=== PATIENT | male | born 1955 | race Caucasian/White ===

== ENCOUNTER 2019-04-26 13:03 | Observation (INO) | payer BC, SELFPAY ==
[2019-04-26] VITALS (14 sets, daily range): BP systolic 136–169; BP diastolic 74–111; PULSE 62–99; RESP 15–21; TEMP 36.3–36.8; O2SAT 97–100; BMI 24.0
--- NOTE | 2019-04-26 13:28 | ED_ITS ---
Documented by User: Latonya Wu 04/26/19 14:27 HPI - Wound/Laceration General: Chief Complaint: Wound/Laceration Stated Complaint: FOREARM LAC Time Seen by Provider: 04/26/19 13:25 Source: patient Mode of arrival: ambulatory History of Present Illness: HPI narrative: 63-year-old male patient presents emergency department with laceration to the third distal portion of his left forearm. Patient states he did this with an X-Acto knife. Patient states this happened about an hour prior to arrival. Patient complains of decreased sensation to his fingers but has good pulses and good cap refill. Patient was actively bleeding at triage triage placed a tourniquet in place to control bleeding. Pt is unsure of lasat tetanus shot. Onset (ago): hour(s) (1) Extremity Location: Left: arm (3 cm linear laceration) Place: home Patient tetanus UTD: No (Unknown) Context: accidental Associated symptoms: Reports numbness; Denies chills, fever(s) or syncope Treatments prior to arrival: tourniquet Review of Systems Const: Denies: fever, chills, body aches or fatigue Card: Denies: chest pain, palpitations, irregular heart rhythm, lightheadedness or syncope Resp: Denies: shortness of breath, productive cough, wheezing or stridor Musc: Reports: extremity pain and other (3 cm linear laceration to left 1/3 distal arm) Neuro: Denies: headache, changes in sensation, dizziness or vertigo Psych: Denies: anxiety, depression, mood swings, panic attacks, suicidal ideation or homicidal ideation [facility] ED PFSH: Statuses (acute, chronic, etc) shown below reflect problem list status as previously entered and may not be historically accurate Social History Smoking and tobacco status: former smoker Physical Exam Const: COMMON NORMALS: no apparent distress and oriented x3 GENERAL APPEARANCE: cooperative ORIENTATION/CONSCIOUSNESS: Yes awake, Yes oriented to person, Yes oriented to place and Yes oriented to time HENMT: COMMON NORMALS: normocephalic and head/scalp atraumatic HEAD & SCALP: normocephalic and atraumatic Eye: COMMON NORMALS: PERRL PUPIL: Yes PERRL Neck/C-Spine: COMMON NORMALS: no JVD Chest: COMMONS NORMALS: inspection of chest normal Resp: COMMON NORMALS: normal respiratory effort, no retractions, no use of accessory muscles and clear to auscultation bilaterally EFFORT & INSPECTION: Yes able to speak in complete sentences AUSCULTATION: clear to auscultation bilaterally Cardio: COMMON NORMALS: no JVD, regular rate and regular rhythm RATE: regular rate RHYTHM: regular rhythm PERIPHERAL PULSES: radial pulses present Extremity: COMMON NORMALS: normal to inspection NARRATIVE EXTREMITY EXAM: Pt has a 3 cm linear laceration to 1/3 distal portion of left arm.. This appears to be arterial. Neuro: COMMON NORMALS: oriented x3, CN's II-XII intact bilaterally, moves all extremities, no focal motor deficits and no sensory deficits noted SENSORIUM/ORIENTATION: Yes oriented to person, Yes oriented to place and Yes oriented to time SENSORY EXAM: Yes extremities (decreased sensation to left hand sensation did improve after tourniquet was removed) Skin: TRAUMA: lacerations and/or abrasions noted (3 cm linear laceration to 1/3 distal portion of left arm) Course ED course: Tourniquet was removed from arm 5 mL's of 1% lidocaine with epi was injected for local anesthesia it does appear to be an arterial bleed initially I thought it was a capillary spasm however after having the tourniquet released for 30 seconds it does appear to be arterial patient is complaining of decrease sensation to his fingers I will plan to take patient to surgery for repair. I attempted to contact [facility] for transfer however they are on diversion I will call [facility] for transfer at this time Dr. Donaldson to take patient to OR at this time Labs drawn Pulses intact cap refill 2 seconds. Bleeding controlled with intermittent tourniquet use tourniquet used Vital Signs: Vital signs: Vital Signs Temperature 98.3 F 04/26/19 13:10 Pulse Rate 99 04/26/19 13:10 Respiratory Rate 15 04/26/19 13:10 Blood Pressure 169/111 04/26/19 13:10 Pulse Oximetry 97 04/26/19 13:10 MDM - Wound/Laceration 2 Lab Data: Labs: Lab Results 04/26/19 Range/Units 14:10 WBC 7.8 (4.0-10.0) 10^3/ uL RBC 4.24 (4.1-5.3) 10^6/u L Hgb 11.9 (11.7-16.6) g/dL Hct 36.6 L (42.0-52.0) % MCV 86.3 (80-94) fL MCH 28.1 (28.0-34.0) pg MCHC 32.5 (30.0-36.0) g/dL RDW 12.8 (12.1-15.1) % Plt Count 313 (130-400) 10^3/c mm MPV 9.3 (7.4-10.4) fL Neut % (Auto) 82.3 % Lymph % (Auto) 11.1 % Sampson % (Auto) 4.3 % Eos % (Auto) 1.5 % Baso % (Auto) 0.5 % Neut # (Auto) 6.4 (1.8-7.7) 10^3/u L Lymph # (Auto) 0.9 (0.8-4.8) 10^3/u L Sampson # (Auto) 0.3 (0.2-0.9) 10^3/u L Eos # (Auto) 0.1 (0.0-0.8) 10^3/u L Baso # (Auto) 0.0 (0.0-0.1) 10^3/u L Nucleated RBC % (a uto) 0 % Nucleated RBCs # 0.0 /100WBC Discharge Plan Discharge Patient Disposition: Admitted As Inpatient Clinical Impression: Laceration Condition: Stable Coding Level of Care Code ED 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 Sociology 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 Course Vital Signs: Vital signs: Vital Signs Temperature 98.3 F 04/26/19 13:10 Pulse Rate 99 04/26/19 13:10 Respiratory Rate 15 04/26/19 13:10 Blood Pressure 169/111 04/26/19 13:10 Pulse Oximetry 97 04/26/19 13:10 MDM - Wound/Laceration MDM Narrative: Medical decision making narrative: I saw patient with midlevel. Patient had concerning injury with possible arterial injury. I spoke to Dr. Donaldson and he is going to take the patient to the OR to evaluate further. Patient has been stable while here. Patient has no signs of nerve damage to his hand. Lab Data: Labs: Lab Results 04/26/19 Range/Units 14:10 WBC 7.8 (4.0-10.0) 10^3/ uL RBC 4.24 (4.1-5.3) 10^6/u L Hgb 11.9 (11.7-16.6) g/dL Hct 36.6 L (42.0-52.0) % MCV 86.3 (80-94) fL MCH 28.1 (28.0-34.0) pg MCHC 32.5 (30.0-36.0) g/dL RDW 12.8 (12.1-15.1) % Plt Count 313 (130-400) 10^3/c mm MPV 9.3 (7.4-10.4) fL Neut % (Auto) 82.3 % Lymph % (Auto) 11.1 % Sampson % (Auto) 4.3 % Eos % (Auto) 1.5 % Baso % (Auto) 0.5 % Neut # (Auto) 6.4 (1.8-7.7) 10^3/u L Lymph # (Auto) 0.9 (0.8-4.8) 10^3/u L Sampson # (Auto) 0.3 (0.2-0.9) 10^3/u L Eos # (Auto) 0.1 (0.0-0.8) 10^3/u L Baso # (Auto) 0.0 (0.0-0.1) 10^3/u L Nucleated RBC % (a uto) 0 % Nucleated RBCs # 0.0 /100WBC Discharge Plan Discharge Patient Disposition: Admitted As Inpatient Clinical Impression: Laceration Condition: Stable Coding Level of Care Code 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
[2019-04-26 14:24] LABS: Basophils % 0.5 %; Eosinophils # 0.1 10^3/uL (0.0-0.8); Eosinophils % 1.5 %; Hematocrit 36.6 % (42.0-52.0); Hemoglobin 11.9 g/dL (11.7-16.6); Lymphocytes # 0.9 10^3/uL (0.8-4.8); Lymphocytes % 11.1 %; Mean Corpuscular HGB Conc 32.5 g/dL (30.0-36.0); Mean Corpuscular Hemoglobin 28.1 pg (28.0-34.0); Mean Corpuscular Volume 86.3 fL (80-94); Mean Platelet Volume 9.3 fL (7.4-10.4); Monocytes # 0.3 10^3/uL (0.2-0.9); Monocytes % 4.3 %; Neutrophils # 6.4 10^3/uL (1.8-7.7); Neutrophils % 82.3 %; Nucleated Red Blood Cells % 0 %; Platelet Count 313 10^3/cmm (130-400); Red Blood Count 4.24 10^6/uL (4.1-5.3); Red Cell Distribution Width 12.8 % (12.1-15.1); White Blood Count 7.8 10^3/uL (4.0-10.0)
--- NOTE | 2019-04-26 14:33 | ANES.PREANE2 ---
Pre-Anesthetic Assessment Pre-Anesthetic Assessment: Height/Weight: Height 1.78 m Weight 76.204 kg Temp Pulse Resp BP Pulse Ox 98.3 F 99 15 169/111 97 04/26/19 13:10 04/26/19 13:10 04/26/19 13:10 04/26/19 13:10 04/26/19 13:10 Preop Diagnosis: left radial artery laceration Proposed Procedure: Operation Date: 04/26/19 15:00 Proposed Procedures p Radial Artery Repair(Left) - Suhas Donaldson MD [facility] Anesthesia PFSH: Social History Smoking and tobacco status: former smoker Data Anesthesia CBC & Chem 7: 04/26/19 14:10 Other Labs: Laboratory Results - last 48 hr 04/26/19 14:10 WBC 7.8 RBC 4.24 Hgb 11.9 Hct 36.6 L MCV 86.3 MCH 28.1 MCHC 32.5 RDW 12.8 Plt Count 313 MPV 9.3 Neut % (Auto) 82.3 Lymph % (Auto) 11.1 [place] % (Auto) 4.3 Eos % (Auto) 1.5 Baso % (Auto) 0.5 Neut # (Auto) 6.4 Lymph # (Auto) 0.9 [place] # (Auto) 0.3 Eos # (Auto) 0.1 Baso # (Auto) 0.0 Nucleated RBC % (auto) 0 Nucleated RBCs # 0.0 Cardiac Studies: No Data to Display
--- NOTE | 2019-04-26 14:34 | ANES.PREANE2 ---
Pre-Anesthetic Assessment Pre-Anesthetic Assessment: Height/Weight: Height 1.78 m Weight 76.204 kg Temp Pulse Resp BP Pulse Ox 98.3 F 99 15 169/111 97 04/26/19 13:10 04/26/19 13:10 04/26/19 13:10 04/26/19 13:10 04/26/19 13:10 Preop Diagnosis: left arm laceration Proposed Procedure: Operation Date: 04/26/19 15:00 Proposed Procedures p Radial Artery Repair(Left) - Suhas Donaldson MD Last Intake: 13:00 Social: Social History: No alcohol and No tobacco Exam: Pre-Anes Outpt Exam: alert, oriented x 3, clear to auscultation bilaterally and regular rate & rhythm Airway: Submandibular: WNL Cervical ROM: WNL MP: 2 Pulmonary: Pulmonary: None reported CV/HEM: CV/HEM: None reported : : None reported Hepatic: Hepatic: None reported GI: GI: None reported Metabolic: Metabolic: None reported Musc/skel: Musc/skel: Lower Back Pain Neuropsych: Neuropsych: Anxiety and Depression Anesthetic Plan: ASA status: E Anesthesia: Anesthesia Evaluation and General Risk of > 500 ml blood loss (7ml/kg in children): No PFSH Anesthesia PFSH: Social History Smoking and tobacco status: former smoker Data Anesthesia CBC & Chem 7: 04/26/19 14:10 Other Labs: Laboratory Results - last 48 hr 04/26/19 14:10 WBC 7.8 RBC 4.24 Hgb 11.9 Hct 36.6 L MCV 86.3 MCH 28.1 MCHC 32.5 RDW 12.8 Plt Count 313 MPV 9.3 Neut % (Auto) 82.3 Lymph % (Auto) 11.1 [place] % (Auto) 4.3 Eos % (Auto) 1.5 Baso % (Auto) 0.5 Neut # (Auto) 6.4 Lymph # (Auto) 0.9 [place] # (Auto) 0.3 Eos # (Auto) 0.1 Baso # (Auto) 0.0 Nucleated RBC % (auto) 0 Nucleated RBCs # 0.0 Cardiac Studies: No Data to Display
[2019-04-26 14:43] LABS: Alanine Aminotransferase 34 U/L (0-41); Albumin Level 4.5 g/dL (3.5-5.2); Alkaline Phosphatase 48 IU/L (40-130); Aspartate Amino Transferase 44 U/L (0-40); Blood Urea Nitrogen 24 mg/dL (8-23); Calcium 9.5 mg/dL (8.5-10.5); Carbon Dioxide 24 mmol/L (22-29); Chloride 103 mmol/L (98-107); Globulin 2.5 g/dL (1.3-4.6); Glomerular Filtration Rate 85.2 mL/min (90-130); Glucose 119 mg/dL (74-106); Sodium 137 mmol/L (136-145); Total Bilirubin 0.7 mg/dL (0.15-1.2)
--- NOTE | 2019-04-26 14:44 | PC.NURSE ---
Patient Assessment Patient reports he was building something on his daughter's deck and fell with an Xacto knife. Patient holding pressure on arrival. Patient reports that this accident happened just prior to arrival.
[2019-04-26] MEDS: ceFAZolin 1,000 MG in sodium chloride 0.9% (plus) 50 ML 100 MG IV (15:00)
[2019-04-26] MEDS: vancomycin 1,000 MG SDV 1000 MG IRRIGATION (15:05)
[2019-04-26] MEDS: vancomycin 1,000 MG in sodium chloride 0.9% 250 ML 250 MG IV (15:05)
--- NOTE | 2019-04-26 16:03 | SUR.PHASEI ---
1601 PATIENT TO PACU AT THIS TIME FROM OR. RR EVEN AND UNLABORED. PWD. DRESSING, CDI TO LEFT FOREARM. PATIENT TALKATIVE, DROWSY.
--- NOTE | 2019-04-26 16:35 | SUR.PHASEI ---
1627 PATIENT TO MED SURG VIA [facility] AT THIS TIME. NO DISTRESS. PWD.A/OX3. TALKATIVE. DRESSING TO LEFT FOREARM, CDI. PULSE PRESENT AND STRONG.
--- NOTE | 2019-04-26 16:47 | PC.NURSE ---
Patient's to take wallet home.
--- NOTE | 2019-04-26 16:58 | P.OP_ITS ---
Operative Report Date of procedure: April 26, 2019 Pre-op Diagnosis: left arm laceration Post-op diagnosis: other Post-op Diagnosis: Left forearm laceration with transection of left radial artery Post-op Findings: Slightly tangential complete laceration of left radial artery in the distal forearm Procedure Done: Left forearm exploration with debridement and primary repair end to end of the left radial artery Pathology: none sent Surgeon: Suhas Donaldson Anesthesia: General Estimated blood loss (mL): 50 Tourniquet time (min): 0 Complications: None Condition: stable Disposition: floor Brief History: 63-year-old gentleman presents to the emergency room following an accidental laceration to the radial volar aspect of his distal left forearm utilizing an X-Acto knife while performing hobby activity on a piece of wood. We were contacted by the ER department while in the middle of another case that direct pressure was being required along with a tourniquet to control bleeding from this forearm wound. As there were no other providers available other than transfer for this lesion, we had the patient brought to the holding area as we finished our current case in preparation for forearm wound exploration. Verbal consent was obtained from Mr. Mcnamara as we proceeded in expeditious fashion in preparation for the OR. was present at bedside during explanation of the planned procedure and obtaining verbal consent. Procedure: Preanesthetic neurologic exam revealed good hand function without obvious evidence for sensory deficits. Mr. Mcnamara was then taken to the operating room theater, carefully positioned, and underwent general endotracheal anesthesia. Direct pressure was being held on his forearm throughout this time. After confirmation of adequate IVs, his entire left arm and hand from fingertips to shoulder was sterilely prepped and draped with Betadine given the open wound. There was no active bleeding though there was some protrusion of muscle from this approximately 4 cm laceration. After completion of prepping, timeout was performed. 2 g of Ancef had been administered and 1 g of vancomycin was being administered as we proceeded with the procedure. Wound exploration was then performed digitally through the muscle which did appear to extend down to the interosseous fascia. There was some old clot expressed and then rapid active bleeding occurred. Direct pressure was held. The incision was extended proximally about another 2 cm to allow for improved exposure which time we were able to locate the proximal and distal portions of a slightly tangentially transected radial artery. Debridement was performed and the patient received 5000 units of heparin. Active bleeding could be noted from both the proximal and distal portions of this transected artery. Following debridement, it was felt that there were was reasonable opportunity to attempt primary repair without excessive tension. This was performed utilizing interrupted 7-0 Prolene suture. Was completed, hemostasis was confirmed. Cautery was utilized as required. Heparin was partially reversed with protamine. Doppler interrogation of the distal radial artery immediately distal to the repair as well as at the wrist revealed a biphasic signal. Following this, given the somewhat protrusion of the musculature, as well as the contaminated nature of this wound, we elected to perform primary closure utilizing skin samuel only. Sterile dressing was applied. He was awakened from anesthesia and extubated without difficulty. He is taken to the postoperative care unit. I have counseled with his . We wi ll plan for direct admission as observation status overnight with continued IV antibiotics currently.
--- NOTE | 2019-04-26 17:18 | PM.HP ---
Providers/Chief Complaint Admitting Physician: Suhas Donaldson MD Primary Care Provider: Suhas Donaldson MD Chief Complaint: FOREARM LAC History of Present Illness Gordy Mcnamara is a 63 year old male I was contacted by phone from the ER department while in surgery earlier today. He had presented there with a profusely bleeding laceration to the volar aspect of his left forearm following an accidental injury from an X-Acto knife around 11:00 while he was working on some wood. Attempts at direct pressure had failed once released with with continued substantial bleeding which was felt to be arterial. Initially, I was unable to respond as we were in a case and I recommended an attempt to contact orthopedics. Upon my follow-up after completion of my current surgical case, it was determined that he was being prepared for transfer to [place]. As we were now available, I had him brought over to the outpatient surgery department so that we can make preparations to proceed directly to the operating room theater for forearm exploration. Review of Systems General: Reports: 10 or more systems reviewed and unremarkable except in HPI and below Medications/Allergies Home Medications Medication Instructions Recorded Confirmed Last Taken Type alprazolam 04/26/19 Unknown History Allergies Allergy/AdvReac Type Severity Reaction Status Date / Time No Known Allergies Allergy Verified 04/26/19 13:14 PFSH Acute PFSH: Statuses (acute, chronic, etc) shown below reflect problem list status as previously entered and may not be historically accurate Social History Smoking and tobacco status: former smoker Vitals/I&O/Wt Last Vital Signs Temp 97.4 F L 04/26/19 17:00 Pulse 73 04/26/19 17:00 Resp 17 04/26/19 17:00 BP 145/88 04/26/19 17:00 Pulse Ox 100 04/26/19 17:00 04/26/19 04/26/19 04/26/19 06:59 14:59 22:59 Intake Total 540 / 540 Output Total Balance 520 / 520 Weight last 48 hrs Weight 168 lb Physical Exam Const: COMMON NORMALS: no apparent distress, average body habitus and oriented x3 GENERAL APPEARANCE: cooperative, comfortable and well developed; not in distress HENMT: COMMON NORMALS: normocephalic Eye: COMMON NORMALS: PERRL, EOMs intact bilaterally and conjunctivae normal Chest: COMMONS NORMALS: inspection of chest normal CHEST: Yes symmetrical chest wall rise Resp: COMMON NORMALS: normal respiratory effort and no retractions EFFORT & INSPECTION: Yes able to speak in complete sentences AUSCULTATION: clear to auscultation bilaterally Cardio: COMMON NORMALS: regular rate, regular rhythm and S1 normal heart sound PALPATION: normal PMI RATE: regular rate RHYTHM: regular rhythm Extremity: NARRATIVE EXTREMITY EXAM: There is approximate 4 cm slightly oblique laceration to the radial aspect of the distal volar aspect of the left forearm. There is muscle protruding though no active bleeding after release of compression. He presented to the outpatient surgery department with a tourniquet in place and cannot move his hand. Once the tourniquet was released he was able to begin moving his fingers almost immediately. There is no gross obvious deficit to hand movement or finger movement. No dannielle neurologic deficits noted either. GENERAL: Yes normal exam except as noted Neuro: COMMON NORMALS: oriented x3, no focal motor deficits and no sensory deficits noted Data : 04/26/19 14:10 04/26/19 14:10 A&P Assessment and plan (1) Laceration: We will plan to proceed urgently to the operating room theater for formal wound exploration. We will plan for general anesthesia. Recommendation the rationale were carefully and frankly discussed with Mr. Mcnamara and his . All questions were answered. Verbal consent was obtained. They wished to proceed. Status: Acute Attestations Medical Necessity Statement*: Traumatic laceration left forearm with active bleeding Time Spent in Patient Care: Greater than 35 minutes Coding Level of Care Code New Pt Acute Librarian for Moon Fwd Patient Type New Exam Problem Focused Medical Decision Making Moderate Complexity Diagnoses Laceration
--- NOTE | 2019-04-26 17:55 | PC.NURSE ---
Scant amount of sanguineous drainage noted on proximal portion of dressing. Pulse still 3+, no new sensations in hand. Nurse to continue to monitor.
[2019-04-26 21:15] LABS: Glucose Point of Care 122 mg/dL (70-110)
[2019-04-26] MEDS: HYDROcodone-acetaminophen 5-325 mg Tablet 1 TAB PO (21:39)
[2019-04-27] MEDS: ceFAZolin 1,000 MG in sodium chloride 0.9% (plus) 50 ML 100 MG IV ×2 (00:07→06:10)
[2019-04-27] MEDS: TRAMadol 50 mg Tablet PO ×2 (00:08→06:09)
[2019-04-27 04:24] VITALS: BP 160/64; PULSE 57; RESP 18; TEMP 36.4; O2SAT 97
--- NOTE | 2019-04-27 05:19 | PM.DCS ---
Discharge Providers Date of Admission: 04/26/19 16:29 Date of Discharge: Date of Discharge: April 27, 2019 Attending Provider at Admission: Suhas Donaldson MD Attending Provider at Discharge: Suhas Donaldson MD Primary Care Provider: Suhas Donaldson MD Diagnoses at Discharge Discharge Diagnosis (1) Laceration: Status: Acute (2) Injury of radial artery at left forearm level: Status: Acute Problem details: Primary repair of left radial artery following accidental transection. Reason for Visit Reason for Visit: Reason For Visit: FOREARM LAC Hospital Course Hospital Course: Patient was admitted with an accidental laceration to the left forearm. Substantial bleeding was noted at the scene and also in the emergency department. He was taken expeditiously to the operating room where there was a complete oblique transection of the radial artery at the distal left forearm on the volar surface. This was repaired primarily with interrupted 7-0 Prolene suture. There was delayed staple closure of his skin. Good function of the hand with some slight numbness of the index finger and thumb, consistent with possible injury to the adjacent radial nerve without motor deficit. He has done well overnight. He has a strong 2+ left radial pulse at the wrist this morning. Good function of the left hand with continued numbness of the thumb and index finger surgical dressing was changed. Incision is clean and dry and intact. We will discharged home today in stable condition. He will be on tramadol dispense 10 without refills. Have also placed him on aspirin 81 mg daily for the next 2 months. He will follow-up in clinic next week. Discharge Summary: Status post accidental transection of left radial artery with primary repair. 2+ palpable left radial pulse this morning. Mild sensation deficit in the left thumb and index finger. Good motor function. Discharged home in stable condition. Follow-up in my clinic in 1 week. Physical Exam Extremity: LEFT UPPER EXTREMITY: Yes hand & digits (Some paresthesias of the left index finger and thumb. Good motor function.) Discharge Data Data Completed and Pending: Pending at discharge Category Date Time Status Retype for Patigloria s ABO/Rh Routine Lab 04/26/19 15:01 Ordered Labs from last 24 hours 04/26/19 04/26/19 04/26/19 20:53 14:10 14:10 WBC RBC Hgb Hct MCV MCH MCHC RDW Plt Count MPV Neut % (Auto) Lymph % (Auto) [place] % (Auto) Eos % (Auto) Baso % (Auto) Neut # (Auto) Lymph # (Auto) [place] # (Auto) Eos # (Auto) Baso # (Auto) Nucleated RBC % (a uto) Nucleated RBCs # Sodium 137 Potassium 4.0 Chloride 103 Carbon Dioxide 24 Anion Gap 14.0 BUN 24 H Creatinine 0.9 GFR Calculation 85.2 L Glucose 119 H POC Glucose 122 Calcium 9.5 Total Bilirubin 0.7 AST 44 H ALT 34 Alkaline Phosphata se 48 Total Protein 7.0 Albumin 4.5 Globulin 2.5 Blood Type A Negative Antibody Screen Negative 04/26/19 14:10 WBC 7.8 RBC 4.24 Hgb 11.9 Hct 36.6 L MCV 86.3 MCH 28.1 MCHC 32.5 RDW 12.8 Plt Count 313 MPV 9.3 Neut % (Auto) 82.3 Lymph % (Auto) 11.1 [place] % (Auto) 4.3 Eos % (Auto) 1.5 Baso % (Auto) 0.5 Neut # (Auto) 6.4 Lymph # (Auto) 0.9 [place] # (Auto) 0.3 Eos # (Auto) 0.1 Baso # (Auto) 0.0 Nucleated RBC % (a uto) 0 Nucleated RBCs # 0.0 Sodium Potassium Chloride Carbon Dioxide Anion Gap BUN Creatinine GFR Calculation Glucose POC Glucose Calcium Total Bilirubin AST ALT Alkaline Phosphata se Total Protein Albumin Globulin Blood Type Antibody Screen Vitals: Last Vital Signs Temp 97.6 F 04/27/19 04:24 Pulse 57 L 04/27/19 04:24 Resp 18 04/27/19 04:24 BP 160/64 04/27/19 04:24 Pulse Ox 97 04/27/19 04:24 Discharge Plan Discharge Patient Disposition: Home, Self-Care Condition: Stable Prescriptions: New tramadol 50 mg Tablet 50 mg PO Q6H PRN (Reason: Moderate Pain) Qty: 10 RF: 0 aspirin 81 mg tablet,chewable 81 mg PO DAILY Qty: 60 RF: 0 Continued alprazolam 1 mg tablet RF: 0 Discharge Orders: Discharge Order (Routine); Ordered 04/27/19 Ordered By: Suhas Donaldson Referrals: Suhas Donaldson MD [Primary Care Provider] - 1 week Discharge Diet: Regular Discharge Activity: Limit activity as instructed Activity Restrictions/Additional Instructions: May remove bandage in 2 days May begin daily showers in 2 days No swimming or tub baths x 2 weeks No ointments on incision Report drainage, redness, heat, increased pain, or swelling to clinic No heavy lifting with left arm x 1 month Discharge Attestations Time Spent in Discharge Care*: less than 30 min Specific Discharge Activities: Specific discharge activities: educating patient and documenting/other paperwork Status at Discharge: Cognitive status at discharge: cognitively intact, Behavioral status at discharge: cooperative, Functional status at discharge: independent ambulation Overall status at discharge: patient is back to baseline Quality Metrics Clinical Quality Measures During this hospital stay, did patient experience: None Coding Level of Care Code Acute Grid Operator for Moon Aldana Diagnoses Laceration Injury of radial artery at left forearm level S55.109B
[2019-04-27 08:12] VITALS: BP 153/84; PULSE 63; RESP 16; TEMP 36.9; O2SAT 96
[2019-04-27] MEDS: pantoprazole DR 40 mg Tablet PO (09:23)
[2019-04-27 09:25] VITALS: BP 153/84; PULSE 63; RESP 16; TEMP 36.9; O2SAT 96
[2019-04-27] MEDS: HYDROcodone-acetaminophen 5-325 mg Tablet 1 TAB PO (09:26)
--- NOTE | 2019-04-27 10:19 | ANE.PACU2 ---
 Inpatient post-anesthesia follow up: Airway intact: Yes Vital signs: Temperature 98.5 F Pulse Rate [Apical ] 99 Pulse Rate 63 Respiratory Rate 16 Blood Pressure [Ri ght Arm] 169/111 Blood Pressure 153/84 Pulse Oximetry 96 Oxygen Delivery Me thod Room Air Oxygen Flow Rate Fraction of Inspir ed Oxygen Hydration adequate: Yes Nausea and vomiting: No Pain level: 2 Mental status: Baseline
== END 2019-04-27 11:38 | disposition home or self-care (01) ==
LOC: ER 14:17 → OPS 14:21 → MEDSURG 16:30
PROVIDERS: Emergency Medicine; Admitting Provider Thoracic Surgery (Cardiothoracic Vascular Surgery); Emergency Provider Registered Nurse; Family Provider Nurse Practitioner; PCP Thoracic Surgery (Cardiothoracic Vascular Surgery); Visit Provider Thoracic Surgery (Cardiothoracic Vascular Surgery)
PROC: (CPT 35045; principal; 2019-04-26 15:00)
DX: S55.112A Laceration of radial artery at forearm level, left arm, initial encounter (principal); W26.0XXA Contact with knife, initial encounter; Z87.891 Personal history of nicotine dependence
CPT/HCPCS: 35206; 12345; 36415; 36416; 80053; 82962; 85025; 86850; 86900; 96365; 99281; 99283; A4216; G0378; J0330; J0690; J2405; J2704; J2720; J3010; J3370; J3490; J7050

== ENCOUNTER 2020-06-05 12:48 | Outpatient (CLI) | payer OTHER, SELFPAY ==
--- NOTE | 2020-06-05 12:53 | US_ITS ---
WS: [id number] SCROTAL ULTRASOUND EXAMINATION CLINICAL INFORMATION: DISORDER OF MALE GENITAL ORGANS, LOWER ABD PAIN COMPARISON: None. FINDINGS: TESTES Normal in size and echotexture, without focal lesion. Color Doppler: Normal color Doppler flow pattern. Right testes size: 4.7 cm x 3.3 cm x 2.3 cm. Left testes size: 4.7 cm x 3.7 cm x 2.6 cm. EPIDIDYMIDES Left epididymal cyst measuring 5.6 x 5.1 x 9.0 mm Enlarged and heterogeneous epididymis bilaterally. No increased vascularity to suggest acute epididym itis. Right epididymis size: 1.2 cm x 1.2 cm x 1.3 cm. Left epididymitis size: 1.0 cm x 1.2 cm x 1.4 cm. HYDROCELE Small bilateral hydroceles VARICOCELE None. OTHER FINDINGS Both inguinal canals are normal. No inguinal hernia. US/US scrotum [id number] IMPRESSION: 1. Enlarged and heterogeneous epididymis bilaterally. No increased vascularity . 2. Testicles are normal in size and echotexture. 3. Incidental left epididymal cyst measuring 5.6 x 5.1 x 9.0 mm 4. Small bilateral hydroceles. 5. No other significant findings.
== END 2020-06-05 12:49 | disposition home or self-care (01) ==
LOC: US 12:48
PROVIDERS: PCP Nurse Practitioner Family; Visit Provider Nurse Practitioner Family
DX: N50.9 Disorder of male genital organs, unspecified (principal); R10.30 Lower abdominal pain, unspecified; N43.3 Hydrocele, unspecified; N50.3 Cyst of epididymis; Q55.4 Other congenital malformations of vas deferens, epididymis, seminal vesicles and prostate
CPT/HCPCS: 76870

== ENCOUNTER → 2020-07-03 08:55 | Outpatient (BNVA) | payer OTHER, SELFPAY | PROVIDERS: PCP Nurse Practitioner Family; Visit Provider Urology | DX: N45.1 Epididymitis (principal); N20.1 Calculus of ureter; N40.1 Benign prostatic hyperplasia with lower urinary tract symptoms; R33.9 Retention of urine, unspecified; R39.198 Other difficulties with micturition; M79.606 Pain in leg, unspecified | CPT/HCPCS: 81003 ==

== ENCOUNTER 2020-07-05 12:47 | Outpatient (CLI) | payer OTHER, SELFPAY ==
--- NOTE | 2020-07-05 12:53 | XR_ITS ---
WS: [id number] LUMBAR SPINE TECHNIQUE: 3 views of the lumbar spine CLINICAL INFORMATION: GROIN PAIN, LOWER ABDOMINAL PAIN COMPARISON: None. FINDINGS: Mild lumbar curve convex left. Slight anterolisthesis L4 on L5 measuring 4.8 mm. Space narrowing wors e L5-S1. Moderate facet arthropathy L5-S1. Mild chronic anterior wedging L1. XR/XR lumbar spine 2-3V* [id number] IMPRESSION: 1. Mild lumbar curve convex left. No acute compression fractures. 2. Grade 1 anterolisthesis L4 on L5 measuring 4.8 mm. 3. Disc space narrowing worse L5-S1.
== END 2020-07-05 12:48 | disposition home or self-care (01) ==
PROVIDERS: PCP Nurse Practitioner Family; Visit Provider Nurse Practitioner Family
DX: R10.30 Lower abdominal pain, unspecified (principal)
CPT/HCPCS: 72100

== ENCOUNTER 2020-08-01 09:04 | Outpatient (CLI) | payer OTHER, SELFPAY ==
--- NOTE | 2020-08-01 09:12 | USCV_ITS ---
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 Dr Paola Andino MD [facility] (Electronically Signed) Final Date: 01 Aug 2020 18:51 S
== END 2020-08-01 09:05 | disposition home or self-care (01) ==
LOC: US 09:07
PROVIDERS: PCP Nurse Practitioner Family; Visit Provider Nurse Practitioner Family
DX: R20.0 Anesthesia of skin (principal); M79.606 Pain in leg, unspecified
CPT/HCPCS: 93922

== ENCOUNTER → 2020-10-04 11:07 | Outpatient (BNVA) | payer OTHER, SELFPAY | PROVIDERS: PCP Nurse Practitioner Family; Visit Provider Urology | DX: N40.1 Benign prostatic hyperplasia with lower urinary tract symptoms (principal); R33.9 Retention of urine, unspecified; R39.198 Other difficulties with micturition; Z12.5 Encounter for screening for malignant neoplasm of prostate | CPT/HCPCS: 81003; G0103 ==

== ENCOUNTER → 2021-01-09 13:24 | Outpatient (BNVA) | payer MEDICARE, SELFPAY | PROVIDERS: PCP Nurse Practitioner Family; Visit Provider Urology | DX: N40.1 Benign prostatic hyperplasia with lower urinary tract symptoms (principal) | CPT/HCPCS: 81003 ==

== ENCOUNTER 2021-02-02 12:38 | Outpatient (CLI) | payer MEDICARE, SELFPAY ==
--- NOTE | 2021-02-02 12:47 | MR_ITS ---
WS: [id number] MRI of the lumbar spine, 02/02/2021 Clinical Data: LOW BACK PAIN, NUMBNESS OF LEGS Comparison: Lumbar spine, 07/05/2020. Findings: There is disc space narrowing at L5-S1 with anterior osteophytes. No compression fractures are seen. No significant subluxation is present. L1-L2: No canal stenosis, disc bulge or foraminal narrowing is seen. L2-L3: No canal stenosis, disc bulge or foraminal narrowing is seen. L3-L4: There is facet joint hypertrophy with mild canal stenosis. L4-L5: Facet joint hypertrophy and a minimal central disc bulge causing canal and foraminal stenosis. L5-S1: There is facet joint hypertrophy and mild disc bulge causing foraminal and canal stenosis. MR/MR lumbar spine wo con* [id number] Impression: 1. Degenerative disc narrowing at L5-S1 with anterior osteophytes. 2. Multilevel facet joint and disc bulging causing canal and foraminal stenosis of the lower lumbar spine.
== END 2021-02-02 12:39 | disposition home or self-care (01) ==
PROVIDERS: PCP Nurse Practitioner Family; Visit Provider Nurse Practitioner Family
DX: M54.50 Low back pain, unspecified (principal); R20.0 Anesthesia of skin; M25.78 Osteophyte, vertebrae
CPT/HCPCS: 72148

== ENCOUNTER 2021-11-27 14:54 | Outpatient (CLI) | payer MEDICARE, SELFPAY ==
--- NOTE | 2021-11-27 15:05 | XR_ITS ---
WS: [id number] DEXA (DUAL ENERGY X-RAY ABSORPTIOMETRY) Bone mineral density was performed using a Yabb[employer] machine. HISTORY: ARTHRODESIS STATUS, male patient. COMPARISON: None available. Left forearm BMD: 1.030 g/cm2. T score: 0.4 Z score: 1.0 Total hip BMD: Left: 1.028 g/cm2. T score: -0.5 Z score: 0.0 Right: 1.032 g/cm2. T score: -0.5 Z score: 0.0 XR/XR DEXA axial skeleton* [id number] IMPRESSION: Normal bone mineral density.
== END 2021-11-27 14:55 | disposition home or self-care (01) ==
LOC: RAD 14:55
PROVIDERS: PCP Nurse Practitioner Family; Visit Provider Nurse Practitioner
DX: M85.89 Other specified disorders of bone density and structure, multiple sites (principal); Z98.1 Arthrodesis status
CPT/HCPCS: 77080